=== PATIENT | male | born 1960 | race Caucasian/White ===

== ENCOUNTER 2017-09-07 12:29 | Observation (INO) | payer BC ==
[2017-09-07 12:36] VITALS: BP 126/68; PULSE 89; RESP 20; TEMP 98.6; O2SAT 98
--- NOTE | 2017-09-07 12:57 | PD ---
HPI Chief Complaint: Cardiac Complaint Time Seen by Provider: 12:41 Travel History International Travel<30 days: No Contact w/Intl Traveler<30days: No Traveled to known affect area: No History of Present Illness HPI 56yo M with PMH of DM and dermatomyositis (currently being work up with rheumatology) presents to the ED with c/o generalized itching hives that is worst today. Said he also feels tightness in his throat since this morning. Pt with left sided chest pain since this morning that is squeezing and nonradiating. Denies any fever, cough, sob, n/v, abdominal pain, focal weakness or numbness. Pt took children's diphenhydramine today. Pt was given steroid by escalator constructor but has not taken it today. Said he ate chocolate ice cream last night and thinks he may be allergic to chocolate. PFSH Social History Tobacco Use: No Allergies-Medications (Allergen,Severity, Reaction): Coded Allergies: chocolate flavor (Verified Allergy, Unknown, 09/07/17) Reported Meds & Prescriptions Reported Meds & Active Scripts Active Reported Vitamin D3 (Cholecalciferol) 2,000 Unit Cap 2,000 Units PO DAILY Prednisone 5 Mg Tab 5 Mg PO DIRECTED Amlodipine-Olmesartan 5-20 Mg Tab 1 Tab PO DAILY Review of Systems Except as stated in HPI: all other systems reviewed are Neg Physical Exam Narrative GENERAL: 56yo M in mild distress. SKIN: Diffuse urticaria in bilateral upper, lower extremities, abdomen. HEAD: Atraumatic. Normocephalic. EYES: Pupils equal and round. No scleral icterus. No injection or drainage. ENT: Throat: +Uvula edema. No tongue or lip swelling. NECK: Trachea midline. No JVD. CARDIOVASCULAR: Regular rate and rhythm. No murmur appreciated. RESPIRATORY: No accessory muscle use. Clear to auscultation. Breath sounds equal bilaterally. GASTROINTESTINAL: Abdomen soft, non-tender, nondistended. MUSCULOSKELETAL: No obvious deformities. No clubbing. No cyanosis. No edema. NEUROLOGICAL: Awake and alert. No obvious cranial nerve deficits. Motor grossly within normal limits in all extremities. Sensation intact. Normal speech. PSYCHIATRIC: Appropriate mood and affect; insight and judgment normal. Data Data Last Documented VS Vital Signs Date Time Temp Pulse Resp B/P (MAP) Pulse Ox O2 Delivery O2 Flow Rate FiO2 09/07/17 13:11 22 98 Room Air 09/07/17 13:07 70 123/76 09/07/17 12:36 98.6 Orders Orders Electrocardiogram (09/07/17 12:41) Complete Blood Count With Diff (09/07/17 12:41) Comprehensive Metabolic Panel (09/07/17 12:41) Ckmb (Isoenzyme) Profile (09/07/17 12:41) Troponin I (09/07/17 12:41) Prothrombin Time / Inr (Pt) (09/07/17 12:41) Act Partial Throm Time (Ptt) (09/07/17 12:41) Magnesium (Mg) (09/07/17 12:41) Chest, Single Ap (09/07/17 12:41) Iv Access Insert/Monitor (09/07/17 12:41) Ecg Monitoring (09/07/17 12:41) Oximetry (09/07/17 12:41) Diphenhydramine Inj (Benadryl Inj) (09/07/17 13:00) Methylprednisolone So Succ Inj (Solumedr (09/07/17 13:00) Epinephrine (1:1000) Inj (Adrenalin (1:1 (09/07/17 13:00) Admit Order (Ed Use Only) (09/07/17 15:00) Place In Observation (09/07/17 ) Vital Signs (Adult) Q4H (09/07/17 15:00) Activity Oob Ad Shantelle (09/07/17 15:00) Police Communications Operator / Telemetry .CONTINUOUS (09/07/17 15:00) Intake + Output JOE.QSHIFT (09/07/17 15:00) Diet Heart Healthy (09/07/17 Dinner) Sodium Chloride 0.9% Flush (Ns Flush) (09/07/17 15:00) Sodium Chloride 0.9% Flush (Ns Flush) (09/07/17 21:00) Creatine Kinase (Cpk) (09/07/17 15:00) Creatine Kinase (Cpk) (09/07/17 21:00) Troponin I (09/07/17 15:00) Troponin I (09/07/17 21:00) Electrocardiogram (09/07/17 15:00) Electrocardiogram (09/07/17 21:00) Naloxone Inj (Narcan Inj) (09/07/17 15:00) Docusate Sodium-Senna (Lesley-Colace) (09/07/17 21:00) Magnesium Hydroxide Liq (Milk Of Magnesi (09/07/17 15:00) Sennosides (Senokot) (09/07/17 15:00) Bisacodyl Supp (Dulcolax Supp) (09/07/17 15:00) Lactulose Liq (Lactulose Liq) (09/07/17 15:00) Morphine Inj (Morphine Inj) (09/07/17 15:00) Nitroglycerin 2% Oint (Nitroglycerin 2% (09/07/17 15:00) Aspirin (Aspirin) (09/07/17 15:15) Aspirin Ec (Ecotrin Ec) (09/08/17 09:00) Methylprednisolone So Succ Inj (Solumedr (09/07/17 22:00) Diphenhydramine Inj (Benadryl Inj) (09/07/17 15:15) Epinephrine (1:1000) Inj (Adrenalin (1:1 (09/07/17 15:15) Labs Laboratory Tests Test 09/07/17 12:55 White Blood Count 10.0 TH/MM3 Red Blood Count 5.16 MIL/MM3 Hemoglobin 16.1 GM/DL Hematocrit 47.1 % Mean Corpuscular Volume 91.4 FL Mean Corpuscular Hemoglobin 31.2 PG Mean Corpuscular Hemoglobin Concent 34.1 % Red Cell Distribution Width 13.6 % Platelet Count 185 TH/MM3 Mean Platelet Volume 8.9 FL Neutrophils (%) (Auto) 84.2 % Lymphocytes (%) (Auto) 9.5 % Monocytes (%) (Auto) 4.9 % Eosinophils (%) (Auto) 1.2 % Basophils (%) (Auto) 0.2 % Neutrophils # (Auto) 8.4 TH/MM3 Lymphocytes # (Auto) 0.9 TH/MM3 Monocytes # (Auto) 0.5 TH/MM3 Eosinophils # (Auto) 0.1 TH/MM3 Basophils # (Auto) 0.0 TH/MM3 CBC Comment DIFF FINAL Differential Comment Prothrombin Time 10.6 SEC Prothromb Time International Ratio 1.0 RATIO Activated Partial Thromboplast Time 23.7 SEC Blood Urea Nitrogen 12 MG/DL Creatinine 0.95 MG/DL Random Glucose 147 MG/DL Total Protein 6.5 GM/DL Albumin 3.6 GM/DL Calcium Level 8.2 MG/DL Magnesium Level 2.5 MG/DL Alkaline Phosphatase 55 U/L Aspartate Amino Transf (AST/SGOT) 22 U/L Alanine Aminotransferase (ALT/SGPT) 33 U/L Total Bilirubin 1.4 MG/DL Sodium Level 141 MEQ/L Potassium Level 4.1 MEQ/L Chloride Level 106 MEQ/L Carbon Dioxide Level 25.2 MEQ/L Anion Gap 10 MEQ/L Estimat Glomerular Filtration Rate 82 ML/MIN Total Creatine Kinase 100 U/L Troponin I LESS THAN 0.02 NG/ML MDM Medical Decision Making Medical Screen Exam Complete: Yes Emergency Medical Condition: Yes Interpretation(s) EKG: NSR 79bpm. Normal axis. No ST segment elevation or depression. Differential Diagnosis Anaphylaxis vs. ACS vs. musculoskeletal pain Narrative Course 56yo M with c/o generalized hives, throat swelling, left sided chest pain today. Impression is more anaphylaxis. Pt placed on night monitor and given epinephrine 0.3mg IM, methylprednisolone and diphenhydramine. Pt also with left sided chest pain which can be part of the anaphylaxis. However, pt has HTN and possible CAD as he had cardiac cath a few years ago and said it was fine and no stent was placed. Pt has not followed up with a senior underwriting assistant. Pt reevaluated at bedside and uvula swelling has improved. Itching has also improved. Even though the chest pain could be associated with the anaphylaxis reaction, I feel that given pt's cardiac risk factors, will do serial EKG and cardiac enzymes as well. Discussed with Dr. Dumont and accepted to her service. Critical Care Narrative Aggregate critical care time was 35 minutes. Time to perform other separately billable procedures was not included in the critical care time. My time did not include minutes spent treating any other patients simultaneously or on activities that did not directly contribute to the patient's treatment. The services I provided to this patient were to treat and/or prevent clinically significant deterioration that could result in: cardiovascular collapse or . I provided critical care services requiring my management, as noted below: Chart data review, documentation time, medication orders and management, vital sign assessments/reviewing monitor data, ordering and reviewing lab tests, ordering and interpreting/reviewing x-rays and diagnostic studies, care of the patient and discussion of the patient with the admitting physicians. Diagnosis Primary Impression: Anaphylaxis Qualified Codes: T78.2XXA - Anaphylactic shock, unspecified, initial encounter Additional Impression: Chest pain Qualified Codes: R07.9 - Chest pain, unspecified Admitting Information Admitting Physician Requests: Michelle Martino DO September 07, 2017 12:57
[2017-09-07] MEDS ORDERED: EPINEPHrine HCL (1:1000) 1 MG/ML VIAL IM ONE (13:00)
[2017-09-07] MEDS ORDERED: methylPREDNISolone SOD SUCC 125 MG/2 ML VIAL IV PUSH ONE (13:00)
[2017-09-07] MEDS ORDERED: diphenhydrAMINE HCL 50 MG/ML VIAL IVP ONE (13:00)
[2017-09-07 13:11] VITALS: RESP 22; O2SAT 98
[2017-09-07] MEDS ORDERED: PRED5TAB PO (13:20)
[2017-09-07] MEDS ORDERED: [UNRECOGNIZED DRUG - CODE] PO (13:20)
[2017-09-07] MEDS ORDERED: VITA2000 PO (13:20)
[2017-09-07 13:33] LABS: AUTOMATED NEUTROPHIL # 8.4 TH/MM3 (1.8-7.7); BASOPHIL % 0.2 % (0.0-2.0); EOSINOPHIL # 0.1 TH/MM3 (0-0.4); EOSINOPHIL % 1.2 % (0.0-4.0); HEMATOCRIT 47.1 % (39.0-51.0); HEMOGLOBIN 16.1 GM/DL (13.0-17.0); LYMPH % 9.5 % (9.0-44.0); LYMPHOCYTE # 0.9 TH/MM3 (1.0-4.8); MEAN CELL VOLUME 91.4 FL (80.0-100.0); MEAN CORPUSCULAR HEMOGLOBIN 31.2 PG (27.0-34.0); MEAN CORPUSCULAR HGB CONC 34.1 % (32.0-36.0); MEAN PLATELET VOLUME 8.9 FL (7.0-11.0); MONO % 4.9 % (0.0-8.0); MONOCYTE # 0.5 TH/MM3 (0-0.9); NEUT % 84.2 % (16.0-70.0); PLATELET COUNT 185 TH/MM3 (150-450); RED BLOOD COUNT 5.16 MIL/MM3 (4.50-5.90); RED CELL DISTRIBUTION WIDTH 13.6 % (11.6-17.2)
[2017-09-07 13:42] LABS: PROTHROMBIN TIME - PATIENT 10.6 SEC (9.8-11.6)
--- NOTE | 2017-09-07 13:45 | RADRPT ---
EXAM DATE: 09/07/2017 1:39 PM EDT AGE/SEX: 56 years / Male INDICATIONS: Chest Pain. Hives. CLINICAL DATA: This is the patient's initial encounter. Patient reports that signs and symptoms have been present for 2 days and indicates a pain score of 1/10. MEDICAL/SURGICAL HISTORY: None. None. COMPARISON: No prior [facility] exams available for comparison. FINDINGS: A single AP view of the chest demonstrates the lungs to be symmetrically aerated without evidence of mass, infiltrate or effusion. The cardiomediastinal contours are unremarkable. Osseous structures a re intact. CONCLUSION: No acute intrathoracic disease. Electronically signed by: Reed Brown MD 09/07/2017 1:43 PM EDT
[2017-09-07 13:53] LABS: ALBUMIN 3.6 GM/DL (3.4-5.0); ALT (GPT) 33 U/L (12-78); AST (GOT) 22 U/L (15-37); BICARBONATE 25.2 MEQ/L (21.0-32.0); BLOOD UREA NITROGEN 12 MG/DL (7-18); CALCIUM 8.2 MG/DL (8.5-10.1); CHLORIDE 106 MEQ/L (98-107); CREATININE 0.95 MG/DL (0.60-1.30); GLOMERULAR FILTRATION RATE 82 ML/MIN (>89); GLUCOSE,RANDOM 147 MG/DL (74-106); MAGNESIUM 2.5 MG/DL (1.5-2.5); SODIUM (NA) 141 MEQ/L (136-145)
[2017-09-07 13:57] LABS: ALKALINE PHOSPHATASE 55 U/L (45-117); TOTAL BILIRUBIN ADULT 1.4 MG/DL (0.2-1.0); TOTAL PROTEIN 6.5 GM/DL (6.4-8.2); TROPONIN I LESS THAN 0.02 NG/ML (0.02-0.05)
[2017-09-07] MEDS ORDERED: SENNOSIDES 8.6 MG TAB PO PRN (15:00)
[2017-09-07] MEDS ORDERED: LACTULOSE SYRUP 20 GM/30 ML CUP PO PRN (15:00)
[2017-09-07] MEDS ORDERED: SODIUM CHLORIDE 0.9% FLUSH 10 ML FLUSH IV FLUSH PRN (15:00)
[2017-09-07] MEDS ORDERED: BISACODYL 10 MG SUPP RECTAL PRN (15:00)
[2017-09-07] MEDS ORDERED: MAGNESIUM HYDROXIDE SUSP 30 ML CUP PO PRN (15:00)
[2017-09-07] MEDS ORDERED: NITROGLYCERIN 2% OINT 1 GM PACKET TOPICAL PRN (15:00)
[2017-09-07] MEDS ORDERED: MORPHINE SULFATE 2 MG/ML SYRINGE IV PUSH PRN (15:00)
[2017-09-07] MEDS ORDERED: NALOXONE HCL 0.4 MG/ML AMP IV PUSH PRN (15:00)
[2017-09-07] MEDS ORDERED: EPINEPHrine HCL (1:1000) 1 MG/ML VIAL IM PRN (15:15)
[2017-09-07] MEDS ORDERED: ASPIRIN 325 MG TAB PO ONE (15:15)
[2017-09-07 15:21] VITALS: BP 128/72; PULSE 80; RESP 19; O2SAT 96
--- NOTE | 2017-09-07 16:50 | HHI.HP ---
[facility] Non-Staff Admission Diagnosis Anaphylaxis, chest pain Diagnoses: Travel History International Travel<30 Days: No Contact w/Intl Traveler <30 Da: No Traveled to Known Affected Are: No History of Present Illness Patient is a 56-year-old male with past medical history of hypertension, dermatomyositis, sarcoidosis presented to the emergency room with complaints of itching hives after eating chocolate since yesterday night. Initially complained of chest pain to the ED physician but later tells me that it has resolved and he thinks it related to his left shoulder as he rolled out of his bed,fell last night and hit his shoulder. He states he got a new RV and is not familiar with it. He states that he has a known prior history of having a reaction to chocolate however he hadn't had chocolate for very long time and figured that he would be okay tasting it. He did have a chocolate/double chocolate [employer] and he started having itchiness all over and developed hives on his torso, under his axilla, groin area. He also noted that he had trouble with swallowing however he denied any trouble breathing. He described the swallowing problems as tightness in his esophagus. He states that the left shoulder muscle is still bothering him with some movements however is a lot improved. Currently he denies any chest pains. He denies any nausea or vomiting, lightheadedness or dizziness, shortness of breath. at bedside, confirms history. Review of Systems Except as stated in HPI: all other systems reviewed are Neg Past Family Social History Past Medical History hypertension, dermatomyositis, sarcoidosis Past Surgical History Vasectomy, deviated septum repair, cholecystectomy Reported Medications Reported Meds & Active Scripts Active Reported Vitamin D3 (Cholecalciferol) 2,000 Unit Cap 2,000 Units PO DAILY Prednisone 5 Mg Tab 5 Mg PO DIRECTED Amlodipine-Olmesartan 5-20 Mg Tab 1 Tab PO DAILY Baby Benadryl Allergies: Coded Allergies: chocolate flavor (Verified Allergy, Unknown, 09/07/17) Family History Father from emphysema. Mother :healthy Social History Quit smoking 20 years ago however he still chews tobacco. Occasionally drinks alcohol however denies any illegal drug use. Physical Exam Vital Signs Vital Signs Date Time Temp Pulse Resp B/P (MAP) Pulse Ox O2 Delivery O2 Flow Rate FiO2 09/07/17 15:21 80 19 128/72 (90) 96 Room Air 09/07/17 13:11 22 98 Room Air 09/07/17 13:07 70 123/76 09/07/17 12:36 98.6 89 20 126/68 (87) 98 Physical Exam GENERAL: Laying in bed, appears comfortable. SKIN: Multiple hives noted on the arms, groin area, under the axilla and torso, less noticeable in the back area and legs. HEAD: Atraumatic. Normocephalic. No temporal or scalp tenderness. EYES: Pupils equal round and reactive. Extraocular motions intact. No scleral icterus. No injection or drainage. ENT: Nose without drainage. Throat without erythema, right tonsil does look enlarged but not erythematous. somewhat difficult to appreciate the uvula. Airway is patent. NECK: Trachea midline. Supple, nontender, no meningeal signs. CARDIOVASCULAR: Regular rate and rhythm without murmurs. RESPIRATORY: Clear to auscultation. Breath sounds equal bilaterally. No wheezes GASTROINTESTINAL: Abdomen soft, non-tender, nondistended. No guarding. MUSCULOSKELETAL: Extremities without edema. some discomfort w palpation of the left shoulder mainly in the anterolateral area. Some bruising note on the left back. Good range of motion of the left shoulder NEUROLOGICAL: Awake and alert. Normal speech. Laboratory Laboratory Tests Test 09/07/17 12:55 White Blood Count 10.0 Red Blood Count 5.16 Hemoglobin 16.1 Hematocrit 47.1 Mean Corpuscular Volume 91.4 Mean Corpuscular Hemoglobin 31.2 Mean Corpuscular Hemoglobin Concent 34.1 Red Cell Distribution Width 13.6 Platelet Count 185 Mean Platelet Volume 8.9 Neutrophils (%) (Auto) 84.2 Lymphocytes (%) (Auto) 9.5 Monocytes (%) (Auto) 4.9 Eosinophils (%) (Auto) 1.2 Basophils (%) (Auto) 0.2 Neutrophils # (Auto) 8.4 Lymphocytes # (Auto) 0.9 Monocytes # (Auto) 0.5 Eosinophils # (Auto) 0.1 Basophils # (Auto) 0.0 CBC Comment DIFF FINAL Differential Comment Prothrombin Time 10.6 Prothromb Time International Ratio 1.0 Activated Partial Thromboplast Time 23.7 Blood Urea Nitrogen 12 Creatinine 0.95 Random Glucose 147 Total Protein 6.5 Albumin 3.6 Calcium Level 8.2 Magnesium Level 2.5 Alkaline Phosphatase 55 Aspartate Amino Transf (AST/SGOT) 22 Alanine Aminotransferase (ALT/SGPT) 33 Total Bilirubin 1.4 Sodium Level 141 Potassium Level 4.1 Chloride Level 106 Carbon Dioxide Level 25.2 Anion Gap 10 Estimat Glomerular Filtration Rate 82 Total Creatine Kinase 100 Troponin I LESS THAN 0.02 Result Diagram: 09/07/17 1255 09/07/17 1255 Imaging Last Impressions Chest X-Ray 09/07/17 1241 Signed Impressions: CONCLUSION: No acute intrathoracic disease. Caprini VTE Risk Assessment Caprini VTE Risk Assessment: No/Low Risk (score <= 1) Caprini Risk Assessment Model Point Value = 1 Point Value = 2 Point Value = 3 Point Value = 5 Age 41-60 Minor surgery BMI > 25 kg/m2 Swollen legs Varicose veins or History of unexplained or recurrent spontaneous Oral contraceptives or hormone replacement Sepsis (< 1 month) Serious lung disease, including pneumonia (< 1 month) Abnormal pulmonary function Acute myocardial infarction Congestive heart failure (< 1 month) History of inflammatory bowel disease Medical patient at bed rest Age 61-74 Arthroscopic surgery Major open surgery (> 45 min) Laparoscopic surgery (> 45 min) Malignancy Confined to bed (> 72 hours) Immobilizing plaster cast Central venous access Age >= 75 History of VTE Family history of VTE Factor V Leiden Prothrombin [id number] Lupus anticoagulant Anticardiolipin antibodies Elevated serum homocysteine Heparin-induced thrombocytopenia Other congenital or acquired thrombophilia Stroke (< 1 month) Elective arthroplasty Hip, pelvis, or leg fracture Acute spinal cord injury (< 1 month) Prophylaxis Regimen Total Risk Factor Score Risk Level Prophylaxis Regimen 0-1 Low Early ambulation 2 Moderate Order ONE of the following: *Sequential Compression Device (SCD) *Heparin 5000 units SQ BID 3-4 Higher Order ONE of the following medications: *Heparin 5000 units SQ TID *Enoxaparin/Lovenox 40 mg SQ daily (WT < 150 kg, CrCl > 30 mL/min) *Enoxaparin/Lovenox 30 mg SQ daily (WT < 150 kg, CrCl > 10-29 mL/min) *Enoxaparin/Lovenox 30 mg SQ BID (WT < 150 kg, CrCl > 30 mL/min) AND/OR *Sequential Compression Device (SCD) 5 or more Highest Order ONE of the following medications: *Heparin 5000 units SQ TID (Preferred with Epidurals) *Enoxaparin/Lovenox 40 mg SQ daily (WT < 150 kg, CrCl > 30 mL/min) *Enoxaparin/Lovenox 30 mg SQ daily (WT < 150 kg, CrCl > 10-29 mL/min) *Enoxaparin/Lovenox 30 mg SQ BID (WT < 150 kg, CrCl > 30 mL/min) AND *Sequential Compression Device (SCD) Assessment and Plan Assessment and Plan Anaphylaxis/allergic reaction to chocolate: pt developed hives and difficulty swallowing after eating chocolate last night. Itchiness and difficulty swallowing improved after he received dose of epinephrine and solumedrol in ED. continue epinephrine (one dose available if worsens), scheduled solu-medrol and prn benadryl. Monitor closely overnight. If worsening, must be transferred to ICU. Pt currently feeling better and airway is protected. chest pain: Could be musculoskeletal in nature. Currently resolved. Could be referred pain from shoulder pain status post fall. initial troponin is negative. Will perform serial cardiac enzymes to rule out ACS. Morphine, nitroglycerin paste, aspirin ordered. Undetermined telemetry. Left shoulder pain: s/p fall. naproxen BID. PT ordered. good range of motion but if pain worsens will order shoulder x-ray. hold off for now. Dermatomyositis: pt on home prednisone however will hold for now as he is on solu-medrol, will need to resume as an outpt HTN: resume home med. vasotec prn DVT proph: encourage ambulation/SCD Code Status full Discussed Condition With ER physician, patient and Lashon Dumont MD September 07, 2017 16:50
[2017-09-07] MEDS ORDERED: ENALAPRILAT 1.25 MG/ML VIAL IV PUSH PRN (17:00)
[2017-09-07 17:56] VITALS: BP 117/59; PULSE 77; RESP 18; TEMP 98.3; O2SAT 94
[2017-09-07] MEDS: diphenhydrAMINE HCL 50 MG/ML VIAL IV PUSH PRN ×2 (18:15→22:50)
[2017-09-07 18:36] LABS: TROPONIN I LESS THAN 0.02 NG/ML (0.02-0.05)
[2017-09-07 21:00] VITALS: BP 128/64; PULSE 77; RESP 18; TEMP 98.4; O2SAT 95
[2017-09-07] MEDS ORDERED: SODIUM CHLORIDE 0.9% FLUSH 10 ML FLUSH IV FLUSH SCH (21:00)
[2017-09-07] MEDS: DOCUSATE SODIUM 50 MG/SENNA 8.6 MG TAB PO SCH (22:45)
[2017-09-07] MEDS: NAPROXEN SODIUM 550 MG TAB PO SCH (22:45)
[2017-09-07] MEDS: methylPREDNISolone SOD SUCC 40 MG/1 ML VIAL IV PUSH SCH (22:45)
[2017-09-07 23:00] VITALS: PULSE 78
--- NOTE | 2017-09-07 23:32 | HHI.PR ---
Subjective Remarks F/U hives Objective Vitals Vital Signs Date Time Temp Pulse Resp B/P (MAP) Pulse Ox O2 Delivery O2 Flow Rate FiO2 09/07/17 21:00 98.4 77 18 128/64 (85) 95 09/07/17 17:56 98.3 77 18 117/59 (78) 94 09/07/17 17:06 09/07/17 15:21 80 19 128/72 (90) 96 Room Air 09/07/17 13:11 22 98 Room Air 09/07/17 13:07 70 123/76 09/07/17 12:36 98.6 89 20 126/68 (87) 98 I/O 09/07/17 09/07/17 09/07/17 09/08/17 09/08/17 09/08/17 07:00 15:00 23:00 07:00 15:00 23:00 Intake Total 360 ml Balance 360 ml Intake Oral 360 ml # Voids 3 Result Diagram: 09/07/17 1255 09/07/17 1255 Imaging Last Impressions Chest X-Ray 09/07/17 1241 Signed Impressions: CONCLUSION: No acute intrathoracic disease. Objective Remarks GENERAL: Laying in bed, appears comfortable. SKIN: Multiple hives noted on the arms, groin area, under the axilla and torso, less noticeable in the back area and legs. HEAD: Atraumatic. Normocephalic. No temporal or scalp tenderness. EYES: Pupils equal round and reactive. Extraocular motions intact. No scleral icterus. No injection or drainage. ENT: Nose without drainage. Throat without erythema, right tonsil does look enlarged but not erythematous. somewhat difficult to appreciate the uvula. Airway is patent. NECK: Trachea midline. Supple, nontender, no meningeal signs. CARDIOVASCULAR: Regular rate and rhythm without murmurs. RESPIRATORY: Clear to auscultation. Breath sounds equal bilaterally. No wheezes GASTROINTESTINAL: Abdomen soft, non-tender, nondistended. No guarding. MUSCULOSKELETAL: Extremities without edema. some discomfort w palpation of the left shoulder mainly in the anterolateral area. Some bruising note on the left back. Good range of motion of the left shoulder NEUROLOGICAL: Awake and alert. Normal speech. Procedures none A/P Problem List: (1) Anaphylaxis ICD Code: T78.2XXA - Anaphylactic shock, unspecified, initial encounter Status: Acute (2) Chest pain ICD Code: R07.9 - Chest pain, unspecified Status: Acute Assessment and Plan Anaphylaxis/allergic reaction to chocolate: pt developed hives and difficulty swallowing after eating chocolate. Itchiness and difficulty swallowing improved after he received dose of epinephrine and solumedrol in ED. continue epinephrine (one dose available if worsens), scheduled solu-medrol and prn benadryl. Monitor closely overnight. If worsening, must be transferred to ICU. Pt currently feeling better and airway is protected. chest pain: Could be musculoskeletal in nature. Currently resolved. Could be referred pain from shoulder pain status post fall. initial troponin is negative. Will perform serial cardiac enzymes to rule out ACS. Morphine, nitroglycerin paste, aspirin ordered. Undetermined telemetry. Left shoulder pain: s/p fall. naproxen BID. PT ordered. good range of motion but if pain worsens will order shoulder x-ray. hold off for now. Dermatomyositis: pt on home prednisone however will hold for now as he is on solu-medrol, will need to resume as an outpt HTN: resume home med. vasotec prn DVT proph: encourage ambulation/SCD Problem Qualifiers (1) Anaphylaxis: Qualified Codes: T78.2XXA - Anaphylactic shock, unspecified, initial encounter (2) Chest pain: Qualified Codes: R07.9 - Chest pain, unspecified Raul Roberts MD September 07, 2017 23:32
[2017-09-08 01:06] VITALS: BP 108/53; PULSE 75; RESP 18; TEMP 98.4; O2SAT 95
[2017-09-08 02:03] LABS: TROPONIN I LESS THAN 0.02 NG/ML (0.02-0.05)
[2017-09-08 04:38] VITALS: BP 112/52; PULSE 75; RESP 18; TEMP 98.4; O2SAT 95
[2017-09-08] MEDS: methylPREDNISolone SOD SUCC 40 MG/1 ML VIAL IV PUSH SCH (06:52)
[2017-09-08 08:16] VITALS: PULSE 84
--- NOTE | 2017-09-08 08:42 | HHI.PR ---
Subjective Remarks Follow-up hives. He is feeling much better. Denies respiratory symptoms. Aware he is not allowed to drive on antihistamines Objective Vitals Vital Signs Date Time Temp Pulse Resp B/P (MAP) Pulse Ox O2 Delivery O2 Flow Rate FiO2 09/08/17 08:16 84 09/08/17 04:38 98.4 75 18 112/52 (72) 95 09/08/17 01:06 98.4 75 18 108/53 (71) 95 09/07/17 23:00 78 09/07/17 21:00 98.4 77 18 128/64 (85) 95 09/07/17 17:56 98.3 77 18 117/59 (78) 94 09/07/17 17:06 09/07/17 15:21 80 19 128/72 (90) 96 Room Air 09/07/17 13:11 22 98 Room Air 09/07/17 13:07 70 123/76 09/07/17 12:36 98.6 89 20 126/68 (87) 98 I/O 09/07/17 09/07/17 09/07/17 09/08/17 09/08/17 09/08/17 07:00 15:00 23:00 07:00 15:00 23:00 Intake Total 360 ml Balance 360 ml Intake Oral 360 ml # Voids 3 1 Result Diagram: 09/07/17 1255 09/07/17 1255 Imaging Last Impressions Chest X-Ray 09/07/17 1241 Signed Impressions: CONCLUSION: No acute intrathoracic disease. Objective Remarks GENERAL: Laying in bed, appears comfortable. SKIN: Improving multiple hives noted on the arms, groin area, under the axilla and torso, less noticeable in the back area and legs. NECK: Trachea midline. Supple, nontender, no meningeal signs. No stridor CARDIOVASCULAR: Regular rate and rhythm without murmurs. RESPIRATORY: Clear to auscultation. Breath sounds equal bilaterally. No wheezes GASTROINTESTINAL: Abdomen soft, non-tender, nondistended. No guarding. MUSCULOSKELETAL: Extremities without edema. some discomfort w palpation of the left shoulder mainly in the anterolateral area. Some bruising note on the left back. Good range of motion of the left shoulder NEUROLOGICAL: Awake and alert. Normal speech. Procedures none A/P Problem List: (1) Anaphylaxis ICD Code: T78.2XXA - Anaphylactic shock, unspecified, initial encounter Status: Acute (2) Chest pain ICD Code: R07.9 - Chest pain, unspecified Status: Acute Assessment and Plan Anaphylaxis/allergic reaction to chocolate: pt developed hives and difficulty swallowing after eating chocolate. Itchiness and difficulty swallowing improved after he received dose of epinephrine and solumedrol in ED. he is much improved with no respiratory compromise continue antihistamines, steroids and start H2 blockers. Patient educated. Atypical chest pain: Could be musculoskeletal in nature versus related to allergic reaction. Patient has good exercise tolerance. Patient ruled out for CA. EKG sinus rhythm with no acute ST-T changes tracing reviewed by me. Left shoulder pain: s/p fall. naproxen BID. PT ordered. good range of motion but if pain worsens will order shoulder x-ray. hold off for now. Dermatomyositis: pt on home prednisone however will hold for now as he is on solu-medrol, will need to resume as an outpt HTN: resume home med. vasotec prn DVT proph: encourage ambulation/SCD Discharge Planning Discharge patient to home Condition on discharge: Improved Regular Diet as tolerated Ad Shantelle activity no driving Rx written: Benadryl, Medrol Dosepak and Zantac Follow-up with primary care physician Problem Qualifiers (1) Anaphylaxis: Qualified Codes: T78.2XXA - Anaphylactic shock, unspecified, initial encounter (2) Chest pain: Qualified Codes: R07.9 - Chest pain, unspecified Raul Roberts MD September 08, 2017 08:42
[2017-09-08] MEDS: DOCUSATE SODIUM 50 MG/SENNA 8.6 MG TAB PO SCH (08:43)
[2017-09-08] MEDS: NAPROXEN SODIUM 550 MG TAB PO SCH (08:43)
[2017-09-08] MEDS ORDERED: DIPH25CA PO (08:46)
[2017-09-08] MEDS ORDERED: MEDR4PAK PO (08:46)
[2017-09-08] MEDS ORDERED: ZANT150T2 PO (08:46)
--- NOTE | 2017-09-08 08:49 | HHI.DCPOC ---
Discharge Care Plan Diagnosis: (1) Anaphylaxis (2) Chest pain Your Health Problems Are: Difficulty with ADL Exercise Tolerance Goals to Promote Your Health * To prevent worsening of your condition and complications * To maintain your health at the optimal level Directions to Meet Your Goals Take your medications as prescribed Follow your dietary instruction Follow activity as directed Keep your appointments as scheduled Take your immunizations and boosters as scheduled If your symptoms worsen call your PCP, if no PCP go to Urgent Care Center or Emergency Room Smoking is Dangerous to Your Health. Avoid second hand smoke Call the 24-hour hour crisis hotline for domestic abuse at Raul Roberts MD September 08, 2017 08:49
[2017-09-08 08:52] VITALS: BP 148/69; PULSE 80; RESP 20; TEMP 98; O2SAT 99
[2017-09-08] MEDS ORDERED: amLODIPine BESYLATE 5 MG TAB PO SCH (09:00)
[2017-09-08] MEDS ORDERED: ASPIRIN EC 81 MG TABEC PO SCH (09:00)
[2017-09-08] MEDS ORDERED: LOSARTAN 50 MG TAB PO SCH (09:00)
--- NOTE | 2017-09-08 13:30 | EKG ---
Date Performed: 09/07/2017 Time Performed: 12:59:59 PTAGE: 56 years EKG: Sinus rhythm NORMAL ECG NO PREVIOUS TRACING DOCTOR: Moreno Knowles Interpretating Date/Time 09/08/2017 13:30:12
--- NOTE | 2017-09-08 13:31 | EKG ---
Date Performed: 09/07/2017 Time Performed: 18:09:16 PTAGE: 56 years EKG: Sinus rhythm NORMAL ECG Since PREVIOUS TRACING , no significant change noted PREVIOUS TRACIN09/07/2017 12.59 DOCTOR: Moreno Knowles Interpretating Date/Time 09/08/2017 13:30:25
== END 2017-09-08 10:43 | disposition home or self-care (01) ==
LOC: NEPC 12:29 → NEDA 15:08 → NEPFCDU 17:15
PROVIDERS: ADMIT Internal Medicine; ATTEND Internal Medicine
DX: T78.09XA Anaphylactic reaction due to other food products, initial encounter (principal); R13.10 Dysphagia, unspecified; R07.89 Other chest pain; M25.512 Pain in left shoulder; M33.13 Other dermatomyositis without myopathy; I10 Essential (primary) hypertension; W06.XXXA Fall from bed, initial encounter; Y92.092 Bedroom in other non-institutional residence as the place of occurrence of the external cause
CPT/HCPCS: 71045; 80053; 82550; 83735; 84484; 85025; 85610; 85730; 93005; 96372; 96374; 96375; 96376; G0378; J0171; J1200; J2920; J2930